=== PATIENT | female | born 1950 ===

== ENCOUNTER 2017-12-27 08:59 | Emergency (ER) | payer MEDICARE ==
[2017-12-27 09:26] VITALS: BP 123/85
--- NOTE | 2017-12-27 10:21 | UC ---
Back Pain HPI - HPI Summary HPI Summary: Pt is a 67 y/o F w/ c/o mid center and left back pain onsetting yesterday evening. Pain was rated 6/10 on triage. She states that yesterday afternoon she was sitting in a low chair peeling lobster and during this time she may have injured herself. Pt denies LE pain. She reports treating pain with heat and ibuprofen. Pt notes a similar episode some time 6 months ago, with heat treatment helping to resolve Sx. Initial treatment for previous episode was with a muscle relaxant and pain meds but notes muscle relaxant caused loss of balance. - History of Current Complaint Chief Complaint: UCBackPain Stated Complaint: BACK PAIN Time Seen by Provider: 12/27/17 10:06 Hx Obtained From: Patient Onset/Duration: Lasting Days - yesterday Timing: Constant Severity Currently: Moderate Pain Intensity: 6 Pain Scale Used: 0-10 Numeric - 6/10 Back Pain: Is Discrete @ - mid center and left back Aggravating Factor(s): Nothing Alleviating Factor(s): Nothing Associated Signs And Symptoms: Positive: Other - NEGATIVE: LE pain - Allergies/Home Medications Allergies/Adverse Reactions: Allergies Allergy/AdvReac Type Severity Reaction Status Date / Time hydroxychloroquine Allergy Diarrhea Verified 12/27/17 09:26 [From Plaquenil] Home Medications: Home Medications Cyclosporine 0.05% OPHTH (NF) [Restasis 0.05% OPHTH] 1 drop BOTH EYES BID [History Confirmed 12/27/17] Folic Acid TAB* [Folvite TAB*] 1 mg PO DAILY 12/27/17 [History Confirmed ] Golimumab [Simponi] 150 mg SC SEE INSTRUCTIONS 12/27/17 [History Confirmed 12/27] Levothyroxine TAB* [Synthroid TAB*] 100 mcg PO DAILY 12/27/17 [History Confirmed 12/27/17] Methotrexate TAB* 2.5 mg PO Q7D 12/27/17 [History Confirmed 12/27/17] Pilocarpine TAB (NF) 5 mg PO TID 12/27/17 [History Confirmed 12/27/17] celeCOXIB CAP* [CeleBREX CAP*] 200 mg PO BID 12/27/17 [History Confirmed ] PMH/Surg Hx/FS Hx/Imm Hx Endocrine History: Thyroid Disease Respiratory History: Other Other Respiratory History: sjogren's syndrome - Surgical History Surgical History: Yes Surgery Procedure, Year, and Place: acl repair, hysterectomy, t&a - Family History Known Family History: Negative: Blood Disorder - Social History Alcohol Use: Rare Substance Use Type: None Smoking Status (MU): Never Smoked Tobacco Review of Systems Constitutional: Other - NEGATIVE: fever Musculoskeletal: Other: - POSITIVE: mid center/left back pain NEGATIVE: LE pain All Other Systems Reviewed And Are Negative: Yes Physical Exam - Summary Physical Exam Summary: General: well-appearing, no pain distress Skin: warm, color reflects adequate perfusion, dry Head: normal Eyes: EOMI, FANTA ENT: normal Neck: supple, nontender Respiratory: CTA, breath sounds present Cardiovascular: RRR Abdomen: soft, nontender Bowel: present Musculoskeletal: strength/ROM intact; tender upper/lower back, midline spine, left paraspinal muscles, firm to touch, muscles feel like they are in spasm. Neurological: sensory/motor intact, A&O x3 Psychological: affect/mood appropriate Triage Information Reviewed: Yes Vital Signs: Initial Vital Signs Temp 97.3 F 12/27/17 09:21 Pulse 69 12/27/17 09:21 Resp 18 12/27/17 09:21 BP 123/85 12/27/17 09:21 Pulse Ox 100 12/27/17 09:21 Vital Signs Reviewed: Yes Back Pain Course/Dx - Course Course Of Treatment: NO URINARY SX, NO FEVER. F/U PMD; RECHECK SOONER IF WORSE. - Differential Dx/Diagnosis Provider Diagnoses: LOW BACK PAIN Discharge - Sign-Out/Discharge Documenting (check all that apply): Patient Departure - Discharge Plan Condition: Stable Disposition: HOME Prescriptions: traMADol TAB* [Ultram*] 50 mg PO Q6HR PRN #20 tab MDD 4 PRN Reason: Pain Patient Education Materials: Acute Low Back Pain (ED) Referrals: [facility] [Outside] No Primary Care Phys,NOPCP [Primary Care Provider] - Additional Instructions: FOLLOW UP WITH YOUR DOCTOR. GET RECHECKED FOR ANY WORSENING OF YOUR CONDITION; WEAKNESS, NUMBNESS, DIFFICULTY CONTROLLING BOWEL OR BLADDER, YOU FEEL ILL OR QUESTIONS OR CONCERNS. - Billing Disposition and Condition Condition: STABLE Disposition: Home
== END 2017-12-27 10:33 | disposition home or self-care (01) ==
LOC: UCEAST 08:59
DX: M54.5 Low back pain (principal); E07.9 Disorder of thyroid, unspecified; M35.00 Sjogren syndrome, unspecified; Z90.710 Acquired absence of both cervix and uterus; Z88.8 Allergy status to other drugs, medicaments and biological substances
CPT/HCPCS: 99202; G0463